=== PATIENT | female | born 1990 | race Two or more races ===

== ENCOUNTER 2021-01-14 04:50 | Observation (INO) | payer MEDICAID ==
[~2021-01-14] VITALS: Ht 149.9 cm; Wt 64.9 kg
[2021-01-14] MEDS ORDERED: FOLI0.4T6 MT (05:29)
[2021-01-14] MEDS ORDERED: PNV1TABL76 MT (05:29)
[2021-01-14] MEDS ORDERED: FERR236T3 MT (05:29)
[2021-01-14] MEDS ORDERED: LACTATED RINGERS 1,000 ML IV SCH (05:45)
[2021-01-14 06:18] LABS: CLARITY URINE CLEAR (CLEAR); COLOR URINE YELLOW (YELLOW); KETONES URINE NEGATIVE (NEGATIVE); LEUKOCYTE ESTERASE URINE NEGATIVE (NEGATIVE); NITRITE URINE NEGATIVE (NEGATIVE); OCCULT BLOOD URINE NEGATIVE (NEGATIVE); PH URINE 6.5 (4.5-8.0); PROTEIN URINE NEGATIVE (NEGATIVE); SPECIFIC GRAVITY URINE 1.016 (1.005-1.030); UROBILINOGEN URINE 0.2 E.U./dL (0.2-1.0)
[2021-01-14] MEDS ORDERED: TERBUTALINE SULFATE 1MG/ML VIAL SUBCUT NR (07:15)
== END 2021-01-14 09:30 | disposition home or self-care (01) ==
LOC: 8 EST LDRP 04:50
PROVIDERS: ADMIT Obstetrics & Gynecology; ATTEND Obstetrics & Gynecology
DX: O26.893 Other specified pregnancy related conditions, third trimester (principal); R10.30 Lower abdominal pain, unspecified; Z3A.35 35 weeks gestation of pregnancy
CPT/HCPCS: 59025; 81003; 96360; 96361; 96372; G0378; J3105; 59412; 96365; 99281

== ENCOUNTER 2021-01-22 20:02 | Observation (INO) | payer MEDICAID ==
[~2021-01-22] VITALS: Ht 154.9 cm; Wt 64.4 kg
[~2021-01-22 20:02] MED LIST: FERR236T3 MT; FOLI0.4T6 MT; PNV1TABL76 MT
[2021-01-22] MEDS ORDERED: TERBUTALINE SULFATE 1MG/ML VIAL SUBCUT NR (21:45)
[2021-01-22] MEDS: LACTATED RINGERS 1,000 ML IV SCH ×2 (21:51→23:29)
[2021-01-22] MEDS ORDERED: TERBUTALINE SULFATE 1MG/ML VIAL SUBCUT PRN (23:15)
[2021-01-22 23:29] LABS: CLARITY URINE CLEAR (CLEAR); COLOR URINE YELLOW (YELLOW); KETONES URINE NEGATIVE (NEGATIVE); LEUKOCYTE ESTERASE URINE NEGATIVE (NEGATIVE); NITRITE URINE NEGATIVE (NEGATIVE); OCCULT BLOOD URINE NEGATIVE (NEGATIVE); PH URINE 6.5 (4.5-8.0); PROTEIN URINE NEGATIVE (NEGATIVE); SPECIFIC GRAVITY URINE 1.014 (1.005-1.030); UROBILINOGEN URINE 0.2 E.U./dL (0.2-1.0)
[2021-01-22] MEDS ORDERED: BUTORPHANOL TARTRATE 2 MG/ML VIAL IV PRN (23:45)
== END 2021-01-23 00:46 | disposition home or self-care (01) ==
LOC: INTOOBSV 20:02 → 8 EST LDRP 20:02 → OBSVTOIN 20:02
PROVIDERS: ADMIT Obstetrics & Gynecology; ATTEND Obstetrics & Gynecology
DX: O62.9 Abnormality of forces of labor, unspecified (principal); O42.913 Preterm premature rupture of membranes, unspecified as to length of time between rupture and onset of labor, third trimester; Z3A.36 36 weeks gestation of pregnancy
CPT/HCPCS: 59025; 81003; 96360; 96361; 96372; G0378; J3105; 99281; J0595